=== PATIENT | female | born 2000 | race African-American/Black ===

== ENCOUNTER 2023-11-21 12:18 | Emergency (ER) | payer OTHER, SELFPAY ==
[2023-11-21 12:23] VITALS: BP 125/87
--- NOTE | 2023-11-21 13:48 | ED.GENMED ---
History of Present Illness
General
Chief Complaint: Abdominal Symptoms
Source: patient
Exam Limitations: none
Time Seen by Provider: 11/21/23 13:47
Nursing documentation reviewed up to this point in time: agreed with
Travel History
Have you had any contact with someone who has COVID-19?: No
Do you have any symptoms of coronavirus? Fever > 100 degrees, chills, cough, shortness of breath, sore throat, loss of taste or smell, muscle aches, or headache?: No
History of Present Illness
History of Present Illness:
23-year-old female presents with 1 week of pain across her lower abdomen, worse on the left with some radiation up to the left flank at times. She vomited once this morning when pain woke her and was 10/10. The pain has been constant, it is now
6/10. She saw her PCP and was referred here. She had a normal bowel movement last night. She denies urinary frequency, urgency or burning. She denies fever or chills. She denies nausea at this time.
Past History
Past History
ED Past Medical History: None
ED Past Surgical History: None
Social History
Tobacco: Non-smoker
Personal: Single
Living: with roommate
Employment: Employed
Review of Systems
Review of Systems
Allergies reviewed?: Yes
All Other Systems: ROS reviewed and negative except as documented in HPI and ROS
Constitutional: Denies fever or chills
Respiratory: Denies trouble breathing
Cardiac: Denies chest pain
ABD/GI: Reports abdominal pain and vomiting (Vomited once this morning); Denies nausea, diarrhea, constipated, bloody stools, black stools or anorexia
: Reports flank pain (Left); Denies dysuria, frequency, difficulty voiding, urgency or discharge
Musculoskeletal: Reports no symptoms
Skin: Reports no symptoms
Neurological: Reports no symptoms
Phy Exam
Physical Exam
Physical Exam:
GENERAL: No acute distress. A&Ox3.
CONSTITUTIONAL: Afebrile.
RESPIRATORY: Regular respirations, nonlabored, lungs clear.
CARDIOVASCULAR: Regular rate and rhythm, no murmurs, no rubs.
GI: Soft, mild tenderness to palpate mid to left abdomen, mild tenderness to left flank percussion. Normal BS
MUSCULOSKELETAL: Moves with ease. Well perfused.
SKIN: Warm, dry, pink
PSYCH: Normal mood and affect. Well kept, interactive and appropriate
NEUROLOGIC: Awake, alert and oriented. No focal neurological deficits
Course
Orders/Labs/Results
Orders:
Orders
11/21/23 13:47
Test Result ONCE
11/21/23 14:08
Complete Blood Count/With Diff Urgent
Comprehensive Metabolic Panel Urgent
HCG, Serum Qualitative Screen Urgent
Lipase Urgent
11/21/23 14:51
Urinalysis Reflex To Culture Urgent
Date Specimen was Collected: 11/21/23
Time Specimen was Collected: 14:49
Urine Microscopic Reflex Cult Urgent
Urine Culture Urgent
AYSHA Source: U
Specimen Description:
Date Specimen was Collected: 11/21/23
Time Specimen was Collected: 14:49
Abnormal Lab Results
11/21/23
14:51
Urine Ketones 1+ A
(Negative)
Ur Occult Blood Reflex 3+ A
(Negative)
Leukocyte Esterase Rfl 1+ A
(Negative)
Urine RBC 3-6 A /HPF
(0-2)
Urine Bacteria (Reflex) Moderate A
(Negative)
11/21/23 14:08
11/21/23 14:08
Vital Signs
Initial and Last Documented VS:
Initial Vital Signs
Temp Pulse Resp BP Pulse Ox
98.3 F 83 16 125/87 97
11/21/23 12:23 11/21/23 12:23 11/21/23 12:23 11/21/23 12:23 11/21/23 12:23
Last Documented Vital Signs
Temp Pulse Resp BP Pulse Ox
98.3 F 83 16 125/87 97
11/21/23 12:23 11/21/23 12:23 11/21/23 12:23 11/21/23 16:45 11/21/23 12:23
MDM/Problems Addressed
Differential Diagnosis Includes:
Left kidney stone, colitis, ovarian cyst
MDM/Problems Addressed:
23-year-old female presents with 1 week of pain across her lower abdomen, worse on the left with some radiation up to the left flank at times. She vomited once this morning when pain woke her and was 10/10. The pain has been constant, it is now
6/10. She saw her PCP and was referred here. She had a normal bowel movement last night. She denies urinary frequency, urgency or burning. She denies fever or chills. She denies nausea at this time.
11/21/2023 1449 PM
CBC normal
CMP normal
11/21/2023 1539 PM
UA: Plus for occult blood, 3-6 RBCs, patient finished her menstruation within the past couple days which could explain the red blood cells. I explained to her that I cannot tell if she has a kidney stone without a CAT scan but she currently
declines the CAT scan and states show will return if her pain gets worse.
*Critical Care Note
Total Time (30-74mins, 75-104mins- exclusive of procedures): Not Applicable
ED Attending Note
-
Portions of this chart may have been created with voice recognition software.� Occasional wrong word or��sound alike� substitutions may have occurred due to the inherent limitations of voice recognition software.
Discharge Plan
Departure
Patient Disposition: Home (Routine Discharge)
Date of Disposition: 11/21/23
Time of Disposition: 16:32
Patient with high blood pressure during this ER visit?: No
Condition: Good
Discharge Problem:
Abdominal pain
Instructions: Abdominal Pain
Referrals:
Arturo Medina MD [Family Provider] - As needed
Activity Restrictions/Additional Instructions:
As we discussed, your blood work is normal, your urine shows no sign of infection.
There is some blood in your urine but this may be from your recent menstruation.
I cannot rule out kidney stone without a CAT scan,
Return here immediately for increasing abdominal pain, fever, vomiting or feeling sicker in any way.
Interventions
Interventions:
*Risk Screen - Suicide Last Done: 11/21/23 14:25
*General Assessment Last Done: 11/21/23 14:23
*Neglect/Abuse Screening Last Done: 11/21/23 14:25
*ED COVID-19 Vaccine History Last Done: 11/21/23 12:23
*Nursing Disposition Last Done: 11/21/23 16:45
UB-Jvqrby-Lgjqygcglt Assessment Last Done: 11/21/23 14:23
Discharge Date and Time
Discharge Date/Time: 11/21/23 16:46
[2023-11-21 14:27] LABS: % Basophils 0.6 % (0-2); % Eosinophils 0.5 % (0-6); % Immature Granulocytes 0.2 % (0-0.5); % Lymphocytes 25.2 % (20.5-51.1); % Monocytes 6.2 % (1.7-9.3); % Neutrophils 67.3 % (42.2-75.2); Absolute Basophils 0.1 10^3/uL (0-0.2); Absolute Lymphocytes 2.2 10^3/uL (1.2-3.4); Absolute Monocytes 0.5 10^3/uL (0.1-0.6); Absolute Neutrophils 5.8 10^3/uL (1.4-6.5); Hematocrit 40.5 % (37.0-47.0); Hemoglobin 13.5 g/dL (12.0-16.0); Mean Corp Hgb Conc. 33.3 g/dL (33.0-37.0); Mean Platelet Volume 9.4 fL (7.4-10.4); Nucleated Red Blood Cells % 0 %; Platelet Count 380 10^3/uL (130-400); White Blood Cell Count 8.6 10^3/uL (4.8-10.8)
[2023-11-21 14:42] LABS: ALT (SGPT) 26 U/L (0-35); AST (SGOT) 23 U/L (14-36); Albumin 4.3 g/dl (3.5-5.0); Alkaline Phosphatase 95 U/L (38-126); Blood Urea Nitrogen 12 mg/dl (7-17); Calcium 9.3 mg/dl (8.4-10.2); Carbon Dioxide 23 mmol/L (22-30); Chloride 107 mmol/L (98-107); Glucose 87 mg/dl (70-99); Lipase 59 U/L (23-300); Potassium 4.5 mmol/L (3.5-5.1); Sodium 137 mmol/L (135-145); Total Bilirubin 0.5 mg/dl (0.2-1.3); Total Protein 7.4 g/dl (6.3-8.2); eGFR > 60.00
[2023-11-21 14:45] LABS: HCG, Serum Qualitative Screen Negative
[2023-11-21 15:24] LABS: Urine Albumin Negative (Neg - Trace); Urine Bilirubin Negative (Negative); Urine Character Clear (Clear); Urine Color Yellow; Urine Glucose Negative (Negative); Urine Ketone 1+ (Negative); Urine Leukocyte 1+ (Negative); Urine Nitrite Negative (Negative); Urine Occult Blood 3+ (Negative); Urine Specific Gravity 1.015 (<1.030); Urine Urobilinogen Negative (Neg - 1+)
[2023-11-21 15:46] LABS: Urine Bacteria Moderate (Negative); Urine Squamous Cell >30 /LPF (Few)
[2023-11-21 16:45] VITALS: BP 125/87
== END 2023-11-21 16:46 | disposition home or self-care (01) ==
LOC: EMR 12:18
PROVIDERS: Registered Nurse; EMERGENCY PHYSICIAN Emergency Medicine; FAMILY PHYSICIAN Family Medicine
DX: R10.32 Left lower quadrant pain (principal); R11.10 Vomiting, unspecified
CPT/HCPCS: 99283; 80053; 81003; 81015; 83690; 84703; 85025; 87086

== ENCOUNTER 2025-06-15 22:22 | Emergency (ER) | payer OTHER, SELFPAY ==
[2025-06-15 22:28] VITALS: BP 142/97
[2025-06-16 00:42] VITALS: BMI 50.2
--- NOTE | 2025-06-16 01:50 | ED.GENMED ---
History of Present Illness
General
Chief Complaint: Musculo-Skeletal Complaint
Source: patient and spouse
Exam Limitations: none
Time Seen by Provider: 06/16/25 01:22
Nursing documentation reviewed up to this point in time: agreed with
History of Present Illness
History of Present Illness:
25-year-old female presenting to the emergency department today with concerns of redness and swelling to the left foot over the past 3 days. Initially noticed a small cut after going to [employer]. Noticed the redness and swelling
worsening over the past 2 days. Mainly to the top of the foot. Denies any systemic symptoms or fevers
Past History
Past History
ED Past Medical History: None
ED Past Surgical History: None
Social History
Tobacco: Non-smoker
Personal: Single
Living: with roommate
Employment: Employed
Review of Systems
Review of Systems
Allergies reviewed?: Yes
All Other Systems: ROS reviewed and negative except as documented in HPI and ROS
Phy Exam
Physical Exam
Physical Exam:
GENERAL: Alert , in no apparent distress
EYE: pupils equal and reactive
NECK: Supple, no significant adenopathy.
ENT: o/p clr, mmm.
CARDIAC: Regular rate and rhythm .
LUNGS: Clear breath sounds bilaterally, no acute respiratory distress, no wheezes/rales/rhonchi
ABDOMEN: Soft, without focal tenderness, no r/g, no cvat
NEUROLOGICAL: Alert and oriented, no focal neuro deficits
SKIN: Area of redness warmth and tenderness palpation to the left forefoot 3rd-5th digit at the forefoot roughly an area of 3 x 3 cm. No fluctuance or induration. No purulence, warm and dry, skin intact.
MUSCULOSKELETAL: No edema, well perfused.
PSYCH: Normal and appropriate interaction.
Course
Orders/Labs/Results
Orders:
Orders
06/16/25 01:50
Cephalexin Monohydrate [Keflex] 500 mg PO NOW STA
Vital Signs
Initial and Last Documented VS:
Initial Vital Signs
Temp Pulse Resp BP Pulse Ox
98.4 F 91 16 142/97 100
06/15/25 22:28 06/15/25 22:28 06/15/25 22:28 06/15/25 22:28 06/15/25 22:28
Last Documented Vital Signs
Temp Pulse Resp BP Pulse Ox
98.4 F 87 17 142/97 100
06/15/25 22:28 06/16/25 00:00 06/16/25 00:00 06/15/25 22:28 06/16/25 01:50
MDM/Problems Addressed
MDM/Problems Addressed:
25-year-old female presenting to the emergency department today with concerns of redness and swelling to the left foot. This appears to be consistent with likely cellulitis with redness swelling warmth but no evidence of abscess. No systemic
symptoms. History of immunosuppression increased risk infectious complications. Plan to treat with oral antibiotics. Strict return precautions given. No
*Pulse Oximetry
SaO2: 100
Oxygen Mode of Delivery: Room air
Patient hypoxic: no (100)
*Critical Care Note
Total Time (30-74mins, 75-104mins- exclusive of procedures): Not Applicable
ED Attending Note
-
Portions of this chart may have been created with voice recognition software.� Occasional wrong word or��sound alike� substitutions may have occurred due to the inherent limitations of voice recognition software.
Discharge Plan
Departure
Patient Disposition: Home (Routine Discharge)
Date of Disposition: 06/16/25
Time of Disposition: 01:50
Patient with high blood pressure during this ER visit?: No
Condition: Good
Covid-19: Not Applicable
Discharge Problem:
Cellulitis of foot
Instructions: Cellulitis (skin infection) in adults (DC)
Prescriptions:
New
cephalexin 500 mg capsule
500 mg PO QID 7 Days Qty: 28 0RF
Referrals:
Arturo Medina MD [Family Provider, [facility]]
Stand Alone Forms: Return to Work
Activity Restrictions/Additional Instructions:
You came to the emergency department today with concerns of swelling and discomfort to your left foot. This appears to be consistent with a likely cellulitis or bacterial skin infection. Please take the Keflex 4 times daily for the next week and
follow-up closely with your primary care doctor within the next week. Return immediately for any progressive symptoms.
Interventions
Interventions:
*Risk Screen - Suicide Last Done: 06/15/25 22:28
*Neglect/Abuse Screening Last Done: 06/15/25 22:28
*Nursing Disposition Last Done: 06/16/25 01:57
ED-Musculoskeletal Assessment Last Done: 06/16/25 00:42
Discharge Date and Time
Discharge Date/Time: 06/16/25 02:02
Print Language: [id number]
[2025-06-16] MEDS: KEFLEX 500 MG PO (01:54)
== END 2025-06-16 02:02 | disposition home or self-care (01) ==
LOC: EMR 22:22
PROVIDERS: EMERGENCY PHYSICIAN Emergency Medicine; FAMILY PHYSICIAN Family Medicine
DX: L03.116 Cellulitis of left lower limb (principal)
CPT/HCPCS: 99283